=== PATIENT | female | born 1955 | race Caucasian/White ===

== ENCOUNTER 2018-01-30 19:31 | Emergency (ER) | payer MEDICAID, OTHER ==
[~2018-01-30] VITALS: Ht 162.6 cm; Wt 65.2 kg
[~2018-01-30 19:31] MED LIST: ATEN25TA PO; DOCU-131 PO; GUAI200T3 PO; HYDR-3237 PO; HYDR-3307 PO; RIVA1TAB PO
[2018-01-30 19:32] VITALS: BP 147/84
== END 2018-01-30 21:00 | disposition left against medical advice (07) ==
LOC: ED 20:54
DX: R06.02 Shortness of breath (principal); Z53.21 Procedure and treatment not carried out due to patient leaving prior to being seen by health care provider